=== PATIENT | female | born 1965 | race Caucasian/White ===

== ENCOUNTER 2017-09-15 09:38 | Emergency (ER) | payer MEDICAID ==
[~2017-09-15] VITALS: Ht 154.9 cm; Wt 72.6 kg
[2017-09-15 09:43] VITALS: Ht 154.9 cm; Wt 72.6 kg
[2017-09-15 12:09] VITALS: BP 121/78
== END 2017-09-15 12:10 | disposition home or self-care (01) ==
LOC: ED 09:38
DX: M54.2 Cervicalgia (principal); M43.6 Torticollis; J45.909 Unspecified asthma, uncomplicated
CPT/HCPCS: J1200; J1885; J2270